=== PATIENT | female | born 1935 | race Caucasian/White ===

== ENCOUNTER 2021-07-16 14:11 | Emergency (ER) | payer BC, MEDICARE, OTHER ==
[~2021-07-16] VITALS: Ht 160 cm; Wt 59.1 kg
[2021-07-16] MEDS ORDERED: LIDOcaine 1% 30ml preserv. free vial IJ STA (14:54)
[2021-07-16] MEDS ORDERED: LIDOcaine 1%/PF 5ML 10 MG/ML VIAL IJ ONE (16:05)
[2021-07-16] MEDS ORDERED: HYDROcodone/acetaminophen 5mg/325mg tablet PO ONE (16:10)
[2021-07-16] MEDS ORDERED: LIDOcaine 1% W/epiNEPHrine 1:100,000 20ml vial IJ ONE (16:20)
[2021-07-16] MEDS ORDERED: ibuprofen 200mg tablet PO ONE (16:25)
[2021-07-16 16:49] VITALS: BP 147/82
== END 2021-07-16 18:14 | disposition home or self-care (01) ==
LOC: ER 14:11
DX: S41.111A Laceration without foreign body of right upper arm, initial encounter (principal); S01.511A Laceration without foreign body of lip, initial encounter; I10 Essential (primary) hypertension; E06.9 Thyroiditis, unspecified; G89.29 Other chronic pain; M54.9 Dorsalgia, unspecified; W18.39XA Other fall on same level, initial encounter; Y93.89 Activity, other specified; Y92.89 Other specified places as the place of occurrence of the external cause; Y99.8 Other external cause status
CPT/HCPCS: 12001; 12011; 73030; 73060; 73080; 99284; A6449